=== PATIENT | female | born 2005 | race Caucasian/White ===

== ENCOUNTER 2025-01-03 12:27 | Outpatient (CLI) | payer MEDICAID, SELFPAY ==
--- OUTSIDE RECORDS SUMMARY | 2011-02-26 09:41 | XMS_ITS | Continuity of Care Document ---
Author Organization 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 Name Role Phone Gina Zavaleta Unavailable Unavaila ble Allergies, Adverse Reactions, Alerts Substance Reaction Status Criticality No Known Drug Allergies Active No I nformation Advance Directives Directive Yes / No Effective Date File Name Resuscitation Not Answered N/A N/A Life Support Not Answered N/A N/A Intubation Not Answered N/A N/A Antibiotics Not Answered N/A N/A IV Fluid Support Not Answered N/A N/A Tube Feed Not Answered N/A N/A Other Directive N/A N/A WARNING:The information contained in this section is historical and is provided for information only and does not constitute a legal document or any assurance that the information is still accurate. Please verify the information with the rosario of the legal document before using it for clinical purposes. Encounters Encounter Description Practice Location Reason(s) For Visit Diagnoses Date Provider [facility], [address] [place], [facility], tel:[phone] No Information 2010 Blanca Gina. [address] [place], [place] [id number], [place], [facility], . tel:[phone] [facility], [address], [facility], tel:[phone] 132[address] [facility] No Information 2008 Vocalvin Gina. [address] [place], [place] [id number], [facility], . tel:[phone] Family History Family Member Type Diagnosis Age At Onset Problem (finding) Family history of Diabe lavinia mellitus Payers Payer name Insurance type Covered republican ID Nasir almaraz(s) [facility] Med [facility] [id number] [facility] [id number] Social History Type Description Quantity Date Captured Comments Alcohol Use Details No Caffeine Use Details Unknown Tobacco Use Status No Information Smoking Status No Information Sex Female Chief Complaint And Reason For Visit No Information History Of Present Illness Encounter Date Complaint History Of Prese nt Illness No Information Instructions Date Instruction Additional Infor mation No Information Assessments Type Assessment Date No Information
--- OUTSIDE RECORDS SUMMARY | 2021-02-14 07:21 | XMS_ITS | Continuity of Care Document ---
Author Organization Michelle Cintron [facility] Address MATERIALS CLERK [facility] [address] [place] [address] Phone Care Team Providers Care Animation Producer Name Role Phone Uzair EXECUTIVE PILOT-PRINCIPAL PROGRAMMERDee Unavailable Unavai lable Allergies, Adverse Reactions, Alerts Substance Reaction Status Criticality No Known Allergies Active No Inform ation Medications Medication Instructions Dosage Effective Dates (start - stop) Status Comments Ventolin HFA 90 mcg/actuation aerosol inhaler inhale 2 puff by inhalation route every 4 - 6 hours as needed 180 MCG - Active 1 for home, 1 fo r school. needs folllow up before refills montelukast 10 mg tablet 1 tablet by oral route every evening - Active cetirizine 10 mg tablet 1 tablet by oral route daily - Active buspirone 5 mg tablet 1 tablet by oral route 3 times per day - Active needs follow up before refill Tessalon Perles 100 mg capsule 1 capsule by oral route 2 times per day prn cough - Active needs well check before refills Miralax 17 gram/dose oral powder take (17G) by oral route every day mixed with 8 oz. water or juice as needed for constipation - Active melatonin 5 mg capsule as needed - Active otc taking occasionally Procedures Procedure Date Interim caries arresting medicament appl ication Interim caries arresting medicament appl ication Interim caries arresting medicament appl ication Resin-Based Composite-Two Surfaces, Post erior PREV VISIT, EST, AGE 12-17 Immunization Admin 1st Vaccine 21 MENINGOCOCCAL VACCINE, IM Resin-Based Composite-Two Surfaces, Post erior Interim caries arresting medicament appl ication Periodic Oral Evaluation-Established Pat ient Caries risk assessment & documentation, high risk Sealant Measure Exempt -No Sealable 1st Molars Topical Application Of Fluoride 021 Prophylaxis-Adult PURE TONE HEARING TEST, AIR OFFICE/OUTPATIENT VISIT, EST OFFICE/OUTPATIENT VISIT, EST SBIRT Screening PREV VISIT, EST, AGE 12-17 TOBACCO NON-USER SYST BP < 130 MM HG Systolic BP < 140 mmhg DIAST BP < 80 MM HG Diastolic BP < 90 mmhg WEIGHT RECORD BODY MASS INDEX DOCD OFFICE/OUTPATIENT, EST TELEHEALTH TOBACCO NON-USER Indiv Psychotherapy 30 Min TOBACCO NON-USER Immunization Admin 1st Vaccine 20 Bexsero OFFICE/OUTPATIENT VISIT, EST TOBACCO NON-USER SYST BP < 130 MM HG Systolic BP < 140 mmhg DIAST BP < 80 MM HG Diastolic BP < 90 mmhg WEIGHT RECORD BODY MASS INDEX DOCD Indiv Psychotherapy 30 Min TOBACCO NON-USER OFFICE/OUTPATIENT VISIT, EST TOBACCO NON-USER SYST BP < 130 MM HG Systolic BP < 140 mmhg DIAST BP < 80 MM HG Diastolic BP < 90 mmhg WEIGHT RECORD BODY MASS INDEX DOCD Periodic Oral Evaluation-Established Pat ient Prophylaxis-Adult Sealant Measure Exempt -No Sealable 1st Molars Assessment Of A Patient Topical Application Of Fluoride 020 Bitewings-Two Radiographic Images Treatment Plan Completed Caries risk assessment & documentation, high risk PREV VISIT, EST, AGE 12-17 TOBACCO NON-USER SYST BP < 130 MM HG Systolic BP < 140 mmhg DIAST BP < 80 MM HG Diastolic BP < 90 mmhg WEIGHT RECORD BODY MASS INDEX DOCD Immunization Admin 1st Vaccine 19 Influenza, inj, quad PF, 36+ mos 2018 FITTING OF SPECTACLES REFRACTION EYE EXAM & TREATMENT Encounter Created In Error Sealant-Per Tooth Sealant-Per Tooth Sealant-Per Tooth Sealant-Per Tooth Sealant-Per Tooth Sealant-Per Tooth Treatment Plan Completed Resin-Based Composite-One Surface, Poste rior Bexsero OFFICE/OUTPATIENT VISIT, EST TOBACCO NON-USER SYST BP >=130-139MM HG Systolic BP < 140 mmhg DIAST BP 80-89 MM HG Diastolic BP < 90 mmhg WEIGHT RECORD BODY MASS INDEX DOCD Immunization Admin 1st Vaccine 19 Indiv Psychotherapy 30 Min TOBACCO NON-USER OFFICE/OUTPATIENT VISIT, EST TOBACCO NON-USER SYST BP < 130 MM HG Systolic BP < 140 mmhg DIAST BP < 80 MM HG Diastolic BP < 90 mmhg WEIGHT RECORD BODY MASS INDEX DOCD Comprehensive Oral Eval-New Or Establish ed Patient Assessment Of A Patient Prophylaxis-Child Topical Application Of Fluoride 019 Ext, Erupt Tth/Expsd Root-Elev &/Or Forc eps Remvl Limited Oral Evaluation-Problem Focused Panoramic Radiographic Image REFRACTION EYE EXAM, NEW PATIENT Psych Diagnostic Eval, No Medical Servic es PURE TONE HEARING TEST, AIR VISUAL ACUITY SCREEN Gardasil 9 Fluzone (quad) IM 6-35mo, IM PREV VISIT, NEW, AGE 12-17 Advance Directives Directive Yes / No Effective Date File Name No Information Encounters Encounter Description Practice Location Reason(s) For Visit Diagnoses Date Provider Providers Copied on Encounter Michelle [facility], MATERIALS CLERK [facility] [address], [place], [facility], tel:[phone] [facility] No Information 1 Uzair Price. [address], [id number] 0, [place], [place], [id number], [place]. tel:[phone] [facility], MATERIALS CLERK [facility] [address] [facility] [address] [place] [address], [place], [address], [place] tel:[phone] [facility] No Information 1 Lb Moon. [address] [place] [address], [place], [place], [id number], [place]. tel:[phone] [facility] , MATERIALS CLERK [facility] [address] [place] [address], [place], [address], [place] tel:[phone] [facility] No Information 1 Uzair Price. [address], [id number] 0, [place], [place], [id number], [place]. tel:[phone] PREV VISIT, EST, AGE 12-17 Michelle [facility], MATERIALS CLERK [facility] [address], [place], [address], [place] tel:[phone] [facility] preventive exam (chief complaint)a sthma (chief complaint) Encounter for routine child health examination without abnormal findingsBMI (body mass index), pediatric, 95-99% for ageEncounter for immunizationMild persistent allergic asthmaPrimary amenorrhea 1 Uzair Price. [address], [id number] [facility], [place], [place], [id number], [place]. tel:[phone] [facility] , MATERIALS CLERK [facility] [address], [place], [address], [place] [phone] [facility] No Information 1 Lb Moon. [address] [place] [address], [id number], [place]. tel:[phone] [facility], MATERIALS CLERK [facility] [address], [place], [address], [place] [phone] [facility] Encounter for dental exam and cleaning w/o abnormal findings 1 Lb Moon. [address] [place] [address], [place], [place], [id number], [place]. tel:[phone] OFFICE/OUTPATI ENT VISIT, EST Michelle [facility], MATERIALS CLERK [facility] [address], [place], [address], [place] tel:[phone] [facility] Failed hearing at school (chief complaint) Failed hearing screening 1 Uzair Price. [address], [id number] 0, [place], [place], [id number], [place]. tel:[phone] OFFICE/OUTPATI ENT VISIT, EST [facility] , [facility] [employer] [address] [place] [address], [facility], tel:[phone] [facility] back pain (chief complaint)k nee pain (chief complaint) Acute left-sided thoracic back painAcute pain of left kneeSeasonal allergies 1 Uzair Price. [address], [id number] [address] [place] [address], [address] [place] [address], [place]. tel:[phone] PREV VISIT, EST, AGE 12-17 [facility], [facility] [employer] [address] [place] [address], [facility], tel:[phone] [facility] well visit (chief complaint) Body mass index (BMI) 27.0-27.9, adultEncntr for routine child health exam w/o abnormal findingsAnxietyB MD (body mass index), pediatric, 85% to less than 95% for ageSeasonal allergic rhinitis due to pollenMild persistent allergic asthmaKyphosis (acquired) (postural)Hip dysplasia 0 Uzair Price. [address], [id number] [address] [place] [address], [address] [place] [address], [place]. tel:[phone] OFFICE/OUTPATI ENT, EST TELEHEALTH [facility], [facility] [employer] [address] [place] [address], [facility], tel:[phone] [facility] Virtual Visit (chief complaint)C ough (chief complaint) Seasonal allergic rhinitis due to pollenPersistent dry coughSecond hand smoke exposure 0 Petraglia Hyun. [address], [id number] [address] [place] [address], [address] [place] [address], [place]. tel:[phone] Indiv Psychotherapy 30 Min [facility], [facility] [employer] [address] [place] [address], [facility], tel:[phone] [facility] Speech sound disorderAcademic /educational problemBehavior concern 0 Irene Mendoza. 250 [facility], [id number] [address] [place] [address], [address] [place] [address], . [phone] OFFICE/OUTPATI ENT VISIT, EST Michelle [facility] MATERIALS CLERK [facility] [address], [facility], tel:[phone] [facility] anxiety (chief complaint)B HVS (chief complaint)d yspnea on exertion (chief complaint) BMI (body mass index), pediatric, 85% to less than 95% for ageAnxietyDyspne a on exertion 0 Petraglia Hyun. [address] [place] [address], [id number] [address] [place] [address], [address] [place] [address], [place]. [phone] Indiv Psychotherapy [address] [facility], MATERIALS CLERK [facility] [address] [place] [address], [facility], tel:[phone] [facility] Speech sound disorderAcademic /educational problemBehavior concern 0 Irene Mendoza. [address] [place] [address], [id number] [address] [place] [address], [address] [place] [address], . tel:[phone] OFFICE/OUTPATI ENT VISIT, EST Michelle [facility] Consortiu m, MATERIALS CLERK [facility] [address] [place] [address], [facility], [place] tel:[phone] [facility] Abdominal pain (chief complaint)B HVS (chief complaint)A nxiety (chief complaint) BMI (body mass index), pediatric, 85% to less than 95% for agePositive depression screeningAnxiety Constipation, unspecified constipation typeAbdominal pain in child 0 Petraglia Hyun. [address], [id number] [facility], [place], [address] [place] [address], [place]. tel:[phone] [facility], MATERIALS CLERK [facility] [address] [place] [address], [place], [facility], tel:[phone] [facility] Center Encounter for dental exam and cleaning w/o abnormal findings 0 Lb Moon. [address] [place] [address], [id number], [place]. tel:[phone] PREV VISIT, EST, AGE 12-17 [facility], [facility] [address] [place] [address], [place], [facility], [place] tel:[phone] [facility] well child (chief complaint) Well child check with abnormal findingsPositive depression screeningBMI (body mass index), pediatric, 85% to less than 95% for age 9 Petraglia Hyun. [address], [id number] [address] [place] [address], [address] [place] [address], [place]. tel:[phone] [facility], [facility] [address] [place] [address], [facility], tel: [phone] [facility] Myopia, bilateralAlterna ting esotropia Dec- 9 Nico Leonela. [address], [place], [facility], [place]. tel:[phone] [facility], [facility] [employer] [address] [place] [address], [place], [facility], [place] tel: [phone] [facility] blurry vision (chief complaint) Myopia, bilateralRegular astigmatism, bilateralAlterna ting esotropia Dec- 9 Morhous Kandy. [address], [id number] [facility], [place], [place], [id number], [place]. tel:[phone] [facility], [facility] [address] [place] [address], [place], [facility], [place] tel:[phone] [facility] Center No Information 9 Lb Moon. [address] [place] [address], [id number], [place]. tel:[phone] [facility], [facility] [address], [place], [address], [place] tel: [phone] [facility] No Information Jun-2 9 Lb Moon. [address] [place] [address], [id number], [place]. tel:[phone] Michelle [facility] I[facility] m, [facility] [address], [place], [address], [place] tel: [phone] [facility] No Information 9 Lb Zazuetae. [address] [place] [address], [place], [place], [id number], [place]. tel:[phone] OFFICE/OUTPATI ENT VISIT, EST Michelle [facility], [facility] [employer] [address] [place] [address], [place], [facility], [place] tel: [phone] [facility] URI (chief complaint) Viral URI with coughOther viral agents as the cause of diseases classified elsewhere Jun-0 9 Petraglia Hyun. [address] [facility], [id number] [address] [place] [address], [id number], [place]. tel:[phone] Indiv Psychotherapy [address] [facility] , [facility] [employer] [address] [place] [address], [place], [address], [place] tel: [phone] [facility] Speech sound disorderAcademic /educational problemBehavior concern Mar-0 9 Back VIGNESH Ashley. 250 [facility], [id number] [facility], [place], [address], [place]. tel:[phone] OFFICE/OUTPATI ENT VISIT, EST [facility], [facility] [address], [place], [address], [place] tel:[phone] [facility] Cough (chief complaint)B HVS (chief complaint) AnxietyBMI pediatric, 85% to less than 95th percentile for ageAcute bronchitis, unspecified organism 9 Carl Ortizca. [address] [facility] [address], [id number] [facility], [place], [place], [id number], [place]. tel:[phone] [facility] , [facility] [address], [place], [facility], [place] tel:[phone] [facility] Center Encounter for dental exam and cleaning w/o abnormal findings 9 Asher Sarai. [address] [place] [address], [id number], [place]. tel:[phone] [facility] , [facility] [address], [place], [address], [place] tel:[phone] [facility] Encounter for dental exam and cleaning w/o abnormal findings 8 Asher Sarai. [address] [place] [address], [id number], [place]. tel:[phone] [facility] , [facility] [address] [place] [address], [place], [facility], [place] tel:[phone] [facility] blurry vision (chief complaint) Myopia, bilateralPresenc e of glasses 8 McManis Sudhakar. [address] [facility] [address], [id number] [facility], [place], [place], [id number], [place]. tel:[phone] Psych Diagnostic Eval, No Medical Services [facility] , [facility] [address], [place], 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 [address] [facility] [id number] 0, [place], [address], [place]. [phone] PREV VISIT, NEW, AGE 12-17 Michelle [facility] Care FESTUS Hansen Primary [facility] [address], [place], [address], [place] tel:[phone] [facility] Well child check (chief complaint) BMI pediatric, 85% to less than 95th percentile for ageWell child check with abnormal findingsEncounte r to establish careKyphosis (acquired) (postural) 8-201 8 Petraglia Hyun. [address], [id number] [facility], [place], [place], [id number], [place]. tel:[phone] Family History Family Member Type Diagnosis Age At Onset Problem (finding) Family history of anemi a Problem (finding) Family history of asthm a Problem (finding) Family history of Menta l illness Problem (finding) Family history of hyper tension Problem (finding) Family history of attention deficit hyperactivity disorder Problem (finding) Family history of learn ing disability Problem (finding) Family history of suici de Immunizations Vaccine Date Status Comments MCV4 administered Source: New Imm unization Record Bexsero administered Source: New Imm unization Record Fluzone Quad PF administered Source: New Immunization Record Bexsero administered Source: New Imm unization Record FLUZONE administered Source: New Imm unization Record HPV (9-valent) administered Source: New I mmunization Record Tdap administered Source: Other R egistry fluvirin administered Source: Other R egistry MCV4 administered Source: Other R egistry HPV (9-valent) administered Source: Other Registry Flu administered Source: Other R egistry Tdap administered Source: Other R egistry Influenza administered Source: Other R egistry Varicella administered Source: Other R egistry POLIO administered Source: Other R egistry MMR II administered Source: Other R egistry INFANRIX administered Source: Other R egistry POLIO administered Source: Other R egistry Prevnar 13 administered Source: Other R egistry Hepatitis A administered Source: Other R egistry INFANRIX administered Source: Other R egistry Prevnar 13 administered Source: Other R egistry Haemophilus influenzae type b vaccine, conjugate unspecified formulation administered Source: Other Regist ry Hep A (ped/adol, 2 dose) administered Janis rce: Other Registry Varicella administered Source: Other R egistry POLIO administered Source: Other R egistry Prevnar 13 administered Source: Other R egistry MMR administered Source: Other R egistry Haemophilus influenzae type b vaccine, conjugate unspecified formulation administered Source: Other Regist ry ENGERIX administered Source: Other R egistry INFANRIX administered Source: Other R egistry Polio, Inactive administered Source: Othe r Registry Pneumococcal, PCV-13 administered Source: Other Registry Haemophilus influenzae type b vaccine, conjugate unspecified formulation administered Source: Other Regist ry ENGERIX administered Source: Other R egistry DTaP (younger than 7 yrs) administered So urce: Other Registry Hep B (ped/adol, 3 dose) administered Janis rce: Other Registry Payers Payer name Insurance type Covered alliance party ID Authorrose marie almaraz(s) D [employer] [facility] CI [id number] D [facility] [id number] [employer] CFC CI [id number] [facility] [id number] [employer] CFC CI [id number] [facility] Medical [id number] [employer] CFC CI [id number] [facility] [id number] [employer] CFC CI [id number] [facility] [id number] Social History Type Description Quantity Date Captured Comments Alcohol Use Details Unknown Caffeine Use Details Unknown Tobacco Use Status No Information Smoking Status Never smoker Sex Female Sexual Orientation Don't Know Gender Identity Female Chief Complaint And Reason For Visit No Information Reason For Referral Reason For Referral No Information Plan Of Treatment Date Type Action Status Goal Hematocrit. Due on due Goal Vision screen (15-17 yr). Du e on due Goal Hearing screen (10-21 yr). D ue on due Goal Well visit (16 years) due Goal Vision screen (15-17 yr). Du e on due Goal Well visit (16 years) due Goal Hearing screen (10-21 yr). D ue on due Goal Hematocrit. Due on due Goal Vision screen (15-17 yr). Du e on due Goal Well visit (16 years) due Goal Hearing screen (10-21 yr). D ue on due Goal Hematocrit. Due on due Goal Hematocrit. Due on due Goal Well visit (15 years). Due o n due Goal Vision screen (15-17 yr). Du e on due Goal Hearing screen (10-21 yr). D ue on due Goal Hematocrit. Due on due Goal Vision screen (15-17 yr). Du e on due Goal Well visit (15 years). Due o n due Goal Hearing screen (10-21 yr). D ue on due Goal Lifestyle education regardin g diet completed Goal Low carbohydrate diet educat ion completed Goal Diet education completed Referral Ordered: Referrals: *[facility] - Women's Health. Evaluate and treat ordered Referral Ordered: pt has been having increased back pain ordered Referral Ordered: Orthopedics ordered Referral Ordered: Referrals: *[facility] - Insurance Consultant. Evaluate and treat ordered Referral Ordered: Referrals: *[facility] - Dentistry. Evaluate and treat ordered Referral Ordered: Referrals: [facility] - Insurance Consultant. Evaluate and treat ordered Referral Referred To: [facility] Ordered: Referrals: Behavioral Health. [facility]. Consult. Diagnostic testing ordered Patient Education Well Care - Tips for Te ens: Care Instructions completed Patient Education buspirone 5 mg tablet c ompleted Patient Education Well Care - Tips for Te ens: Care Inst~ completed Patient Education Child's Well Visit, 9 t o 11 Years: Car completed Patient Education A Healthy Lifestyle for Your Child: Ca completed Patient Education Child's Well Visit, You ng Teen: Care I completed History Of Present Illness Encounter Date Complaint History Of Prese nt Illness preventive exam asthma Onset: 2 months ago. The frequency of symptoms is occasional. Pertinent negatives include abdominal pain, cough, diarrhea, eye discharge, fatigue, fever, nausea, otalgia, vomiting or wheezing. Additional information: c/o trouble breathing on/off and worse with exercises. she has been off of her medication for a while. Failed hearing at school Request ing referral to Audiology, Per nurse at school failed hearing in 2017 and 2020. back pain Onset: on 2020. Severity level is 4. Location of pain is middle back.There is no radiation of pain. The patient's school transport describes the pain as an ache and dull. Context: worked out last night.The patient's school transport denies aggravating factors. The patient's school transport denies relieving factors. Additional information: states comes and goes and may have pulled a muscle. She woke up with the back pain and pain in her knee this morning. knee pain Onset: on 2020. Severity level is 4. It occurs intermittently. Location: left knee. The pain is sharp. Context: there is no injury. There are no aggravating factors. There are no associated symptoms. Hand Dominance: right. well visit pt comes in for well visit and sports physical for bowling.Has previously seen [facility] for back pain and hip dysplasia but stopped going d/t transportation issues. Would like to be re-referred.Has an IEP with the school for speech and emotional issues r/t developmental delay.Would like to restart anxiety meds and has been having trouble breathing especially at night Virtual Visit Today's Visit wa s conducted via virtual visit protocol.Connection was established and patient's full name and date of confirmed.I provided guidance regarding the virtual visit process.I monitored and assured connectivity throughout the visit. Cough Onset: 3 weeks a go. Severity: 4. The patient describes the cough as dry. It occurs persistently. Context: allergies and smoke exposure. Symptoms are aggravated by lying down. Relieving factors include antihistamines. Associated symptoms include cough. Pertinent negatives include chills, dyspnea, fatigue, fever, nasal congestion, rhinorrhea, sinus pressure, sore throat and wheezing. The patient has a history of allergies. The patient does not have a history of asthma. Additional information: ran out of antihistamine from ER. [facility] PHQ 2: negGAD2: negCRAFFT: neg anxiety This is a follow up visit. There is continuation of initial symptoms. The patient reports functioning as very difficult. The patient's risk factors include relationship problems, family stress and brother removed from home. The anxiety is associated with agitation. 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 Argues/yells frequently with younger sister. dyspnea on exertion The symptoms are reported as being moderate. She states the symptoms are acute. Reports she received an inhaler from the ER for bronchitis due to wheezing 3 months ago. Requesting refill of inhaler for exertion reporting shortness of breath; no prior asthma or current wheezing. Denies difficulty breathing or illness. [facility] PHQ A score 7GAD 7 score 14, referral. Craft score 0 Abdominal pain Onset: 1 Day. As sociated symptoms include constipation. Pertinent negatives include diarrhea, fever, nausea, rash, vaginal bleeding and vomiting. Anxiety This is an initi al visit. There is continuation of initial symptoms. The patient reports functioning as somewhat difficult. The patient presents with difficulty falling asleep and diminished interest or pleasure but denies depressed mood, difficulty concentrating, feelings of guilt, loss of appetite or thoughts of or suicide. The patient denies any nausea and vomiting. Additional information: seeing Irlanda, school counselor. No history of med management, but mother plans to take her. Left school yesterday due to leg shaking, knee pains, upset stomach, feeling nervous. well child HERE FOR [facility]. NO CONCERNS. blurry vision The 13 year 4 mo nth old female presents for evaluation of blurry vision in the right eye and left eye. It started about 1 year(s) ago. It occurs all the time. The onset was progressive. It affects both near and far vision. The symptom is constant. The condition is mild. The condition is described as blurring. The history and pretests were reviewed and the HPI was obtained by Dr. Kandy Sol. Pt appears normal URI Onset: 1 week ag o. The patient describes the cough as non-productive. The problem has improved. Associated symptoms include cough and nasal congestion. Pertinent negatives include dyspnea, fatigue, fever, sore throat and wheezing. URI (comments) mother consentin g to Meningococcal B vaccine. BHVS PHQ 2 score 1GAD 7 score 13, referral. Cough Onset: 2 weeks a go. The problem has become gradually worse. Relieving factors include tea with honey. Associated symptoms include cough. Pertinent negatives include dyspnea, fatigue, fever, post-nasal drainage, sinus pressure, sore throat and wheezing. The patient does not have a history of asthma. blurry vision The 11 year 10 m onth old female presents for evaluation of blurry vision in the right eye and left eye. It started about 5 year(s) ago. It affects distance vision. Wore glasses age 1-6 then doc D/C'd The history and pretests were reviewed and the HPI was obtained by Dr. Sudhakar Jaimes O.D. Behavior and learning problem Pt has speech disorder and on IEP. Also has issues with reading and other areas of learning. Mom describes pt as emotional and acts younger than age. Mom worried there is an intellectual disability or mental health issue that is impacting learning and behavior. Well child check NEW TO [facility]. Pt here for well child check having some back pain intermittently present for months and not feeling well today. + rhinorrhea- no treatment taken. No known exposures. Functional Status Date Functional Assessmen t No Information Instructions Date Instruction Additional Infor mation [facility] consented emir christiansonThank you for having me see Tiara today! Related to Encounter for routine child health examination without abnormal findings Restart montelukast, cetirizine, and albuterol inhaler. 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 Related to Failed hearing screening [facility] consented emir howard.Thank you for having me see Tiara today! Related to Acute left-sided thoracic back pain Giving encouragement to exercise Related to Body mass index (BMI) 27.0-27.9, adult Lifestyle education regarding di et Related to Body mass index (BMI) 27.0-27.9, adult Encouraged parents t o smoke outside and quit smoking assistance is available.Schedule 14 yr well check before out of meds in 1 month.Thank you for allowing me to participate in your care! Related to Second hand smoke exposure Secondary to allergi es, better w/antihistamine. Med refill provided w/edu. Related to Persistent dry cough TELEPHONE APPT DUE T O COVID19 STAY IN PLACEDiscussed condition, medications, and plan of care.Expect improvement over the next 1-2 weeks.Schedule follow up for new/worsening/persistent symptoms. Related to Seasonal allergic rhinitis due to pollen Evaluated in ER for bronchitis 2 months ago and was given an inhaler for wheezing. No history of asthma.Requesting inhaler refill for shortness of breath on exertion.Provided; encouraged healthy diet and activity as tolerated. If symptoms persist, return to clinic for Pulmonology referral to further evaluate.Complete Med Dispense Form and provide inhaler to school nurse.Thank you for allowing me to take care of Tiara! Related to Dyspnea on exertion START RX SENT TO [facility] 2 WEEKS AGO.Continue school counseling w/Irlanda.Met with pharmaceutical specialty representative, Ev, during today's appt.You may start rx: buspirone 1 tablet preschool associate teacher, after school, and at bedtime to treat your anxiety. Rx sent to pharmacy.See educational handout.FOLLOW UP APPT IN 1 MONTH WITH SCHOOL TRANSPORTATION.Updated 2nd Meningitis B vaccine today. Related to Anxiety Encouraged healthy d ietary intake w/baked chicken/fish, daily vegetables and fruit intake, low fat milk, etc. Limit candy and fried/processed foods. Limit electronics to no more than 2 hours per day. Encourage at least 1 hour physical activity daily.GOALS FOR HEALTHY LIFESTYLE: 5 or more servings of fruits or vegetables every day; limit electronics to less than 2 hours per day (tv, video games, phones, etc); at least 1 hour physical activity/exercise every day (walk, play outside, dance, kick a ball); get 0 calories from drinks, except for skim or 1% milk. Related to BMI (body mass index), pediatric, 85% to less than 95% for age Giving encouragement to exercise Related to Body mass index (BMI) pediatric, greater than or equal to 95th percentile for age Encouraged healthy d ietary intake w/baked chicken/fish, daily vegetables and fruit intake, low fat milk, etc. Limit candy and fried/processed foods. Limit electronics to no more than 2 hours per day. Encourage at least 1 hour physical activity daily.GOALS FOR HEALTHY LIFESTYLE: 5 or more servings of fruits or vegetables every day; limit electronics to less than 2 hours per day (tv, video games, phones, etc); at least 1 hour physical activity/exercise every day (walk, play outside, dance, kick a ball); get 0 calories from drinks, except for skim or 1% milk. Related to BMI (body mass index), pediatric, 85% to less than 95% for age You may call to shae navarro an appointment with one of our behaviorists for further evaluation and management at . If you are having thoughts of harming yourself or others, call or go to the ER immediately. You can call CRISIS at [facility] at [place] you can text home to [phone]. You can call [facility] at [phone] at anytime; 24 hour availability. Related to Positive depression screening Continue school coun edgaring w/Irlanda.Met with pharmaceutical specialty representative, Ev, during today's appt.You may start rx: buspirone 1 tablet preschool associate teacher, after school, and at bedtime to treat your anxiety. Rx sent to pharmacy.See educational handout.FOLLOW UP APPT IN 2 WEEKS WITH SCHOOL TRANSPORTATION. Related to Anxiety rx; miralax SENT TO PHARMACY ([facility]) Educated on constipation, dietary recommendations, medications, and plan of care. Encouraged adequate water and fiber intake (recommended vegetables, fruits, oatmeal, etc.); limit cheese and dairy intake. Increase activity level. Return to clinic if symptoms are not improving. Go to E.R. for severe pain and/or if fevers develop. Educational hand-outs provided.Recommend flu vaccine every january.Next well check due age 14. Related to Constipation, unspecified constipation type Encouraged healthy d ietary intake w/baked chicken/fish, daily vegetables and fruit intake, low fat milk, etc. Limit candy and fried/processed foods. Limit electronics to no more than 2 hours per day. Encourage at least 1 hour physical activity daily.GOALS FOR HEALTHY LIFESTYLE: 5 or more servings of fruits or vegetables every day; limit electronics to less than 2 hours per day (tv, video games, phones, etc); at least 1 hour physical activity/exercise every day (walk, play outside, dance, kick a ball); get 0 calories from drinks, except for skim or 1% milk. Related to BMI (body mass index), pediatric, 85% to less than 95% for age Your questionnaire i ndicated that you are having feelings of anxiety and/or depression. You may call to schedule an appointment with one of our behaviorists for further evaluation and management at . If you are having thoughts of harming yourself or others, call 12-19- or go to the ER immediately. You can call CRISIS at [facility] at [place] you can text home to [phone].Continue school based counseling. Related to Positive depression screening Education provided o n safety, development, nutrition/sleep/exercise recommendations, and vaccines (updated flu vaccine today). Provided discharge instructions on age-appropriate anticipatory guidance education. Recommended annual flu vaccine each January.Return to clinic as needed for illnesses, injuries, or concerns.Routine dental exams are encouraged every 6 months and eye exams every year. These are available to schedule with us at [facility]. You may call to schedule an appointment and request school transportation, if desired.Provided orders for age-recommended lab testing to screen for cholesterol, blood sugar control, thyroid function, and anemia; may be completed at [facility] lab location (see envelope for home w/addresses). We will call upon receiving your lab results.Thank you for allowing me to take care of Tiara! 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 No change in treatment plan.Continue decongestants as needed, humidifier, and ibuprofen otc as needed. Recommended steam from shower inhalation to decongest nasal passages, alternating ibuprofen and acetaminophen otc prn as directed, etc. Expect viral URI symptoms to last 1-2 weeks; return to clinic for new/worsening symptoms or if not improving over the next 3-5 days. Updated Meningococcal B vaccine today.Next well check due at age 13.Thank you for allowing me to take care of Tiara! Related to Viral URI with cough Met with steph Multaniaviorislee, during today's encounter for positive anxiety screen. Related to Anxiety ANTIBIOTIC SENT TO [facility]. Symptoms mild but persistentSee bronchitis handout.Schedule 12 year well child check. Please call [phone], Extension [phone] if consenting to recommended Meningococcal B vaccine (will give at well check if parental consent is received).See appointment reminder. Related to Acute bronchitis, unspecified organism Giving encouragement to exercise Related to Body mass index (BMI) pediatric, 85th percentile to less than 95th percentile for age Low carbohydrate diet education Related to Body mass index (BMI) pediatric, 85th percentile to less than 95th percentile for age - Return in 1 year Related to My opia, bilateral - Return in as needed Related to Presence of glasses - Myopia, or nearsig htedness - is when it is difficult to see details to objects far away. A prescription for glasses has been provided. Unless otherwise noted, children should wear glasses radio time sales supervisor,except gym, recess, and outdoor play to prevent breakage. Adults should wear radio time sales supervisor unless otherwise noted. Because people change, the patient should be rechecked in 1 year (unless insurance limits them to 2 years - usually over 19 years). Ocular health was normal. IF GLASSES ARE NEEDED, TAKE CARE OF THEM. INSURANCE WILL ONLY PROVIDE 1 PAIR PER YEAR FOR CHILDREN 18 AND UNDER. ONCE EVERY 2 YEARS FOR THOSE 19 YRS AND OVER. YOU MIGHT HAVE TO PAY FOR REPLACEMENT PARTS IF THE INSURANCE DECIDES THE BROKEN GLASSES ARE NOT COVERED UNDER THEIR REPLACEMENT POLICIES. Related to Myopia, bilateral - Glasses were order ed for the patient. The insurance company/ state dictates the lab used to manufacture the glasses, we have no control as to the time it takes to get the glasses back. Most times are 2-4 weeks, but on occasion circumstances beyond anyone's control cause delays. Once the order is placed, it can NOT be changed or altered. The only option once the order has been placed is to purchase glasses at your own expense (insurance will NOT reimburse you). Due to the nature of the insurances we take, we are unable to offer refunds or exchanges in styles. If the glasses become broken or damaged, do NOT throw away the parts OR GLUE THEM TOGETHER. Bring them to our office to see what options we have. If they are lost or broken, just not wearing them is NOT an option. They would not have been prescribed if they were not important and needed. If they have a current pair of glasses, even in poor condition, keep those as a backup pair. Related to Presence of glasses Educated on importan ce of good posture. Encouraged stretching and strengthening back/abdomen twice daily to support spine. Referred to [facility] for further eval and management. 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 services availab le. Related to Encounter to establish care Educated mother on s afety, development, nutrition/sleep/exercise recommendations, and vaccines. Provided discharge instructions on age-appropriate anticipatory guidance education. Patient is on IEP- referred to VIGNESH Multani, in clinic for further eval and management. Mother voiced understanding, denied further needs at this time. Related to Well child check with abnormal findings Giving encouragement to exercise Related to Body mass index (BMI) pediatric, 85th percentile to less than 95th percentile for age Diet education Related to Body mass index (BMI) pediatric, 85th percentile to less than 95th percentile for age Assessments Type Assessment Date No Information Patient Care Teams Name Effective Dates (start - stop) Status Members No Information
--- OUTSIDE RECORDS SUMMARY | 2025-01-03 12:31 | XMS_ITS | Clinical Summary ---
Author Organization [facility] Address [address] [place] [address] Care Team Providers Care Furnace Cooler Name Role Phone Anamaria Ham Merced FAYE Primary Care Provider [phone] Allergies No known active allergies Medications busPIRone (BUSPAR) 10 MG tablet 05/10/2024 Active cetirizine (zyrTEC) 5 MG tablet Take 1 tablet by mouth Daily. Active doxepin (SINEquan) 10 MG capsule 03/05/2024 Active melatonin 3 MG tablet Take 2 tablets by mouth Daily. Active traZODone (DESYREL) 50 MG tablet 02/15/2024 Active medroxyPROGESTE Marcin (Provera) 10 MG tablet Take 1 tablet by mouth Daily. 10 tablet 07/18/2024 Active Active Problems Problem Noted Date Diagnosed Date Well woman exam with routine gynecological exam 05/31/2024 Primary amenorrhea 05/31/2024 Immunizations Immunization Administration Dates Next Due DTaP 12/12/2009, 8,10/28/2006,2005,2004 Hep A, 2 Dose 10/28/2006,02/03/2006 Hep B, Adolescent or Pediatric 09/16/2005,2004,2004 HiB 02/03/2006,09/16/2005,2004 IPV 12/12/2009, 7,09/16/2005,2004 MMR 12/12/2009,09/16/2005 Pneumococcal Conjugate 13-Va lent (PCV13) 10/28/2006,02/03/2006,09/16/2005,2004 Varicella 12/12/2009,09/16/2005 Family History Medical History Relation Name Comments Breast cancer Neg Hx Colon cancer Neg Hx Ovarian cancer Neg Hx Uterine cancer Neg Hx Social History Tobacco Use Types Packs/Day Years Used Date Smoking Tobacco: Never Smokeless Tobacco: Never Tobacco Cessation:Counseling Given: Not Answered Alcohol Use Standard Drinks/Week Comments Never 0 (1 standard drink = 0.6 oz pur e alcohol) Comments No Sex and Gender Information Value Date Recorded Sex Assigned at Not on file Legal Sex Female 12:46 PM EDT Gender Identity Not on file Sexual Orientation Not on file Last Filed Vital Signs Vital Sign Reading Time Taken Comments Blood Pressure 130/82 07/12/2024 11:32 AM EDT Pulse - - Temperature - - Respiratory Rate - - Oxygen Saturation - - Inhaled Oxygen Concentration - - Weight 132 kg (291 lb) 07/12/2024 11:32 AM EDT Height 188 cm (6' 2 ) 07/12/2024 11:32 AM EDT Body Mass Index 37.36 07/12/2024 11:32 AM EDT Plan of Treatment Health Maintenance Due Date Last Done Comments HPV VACCINES (1 - 3-dose series) 08/14/2019 MENINGOCOCCAL B VACCINE (1 of 2 - Standard) 2020 TDAP/TD VACCINES (1 - Tdap) 08/14/2023 ANNUAL PHYSICAL 05/27/2024 HEPATITIS C SCREENING 05/27/2024 COVID-19 Vaccine (1 - season) 2024 INFLUENZA VACCINE 01/18/2025 Pneumococcal Vaccine 0-49 Completed 2006, 02/03/2006, 09/16/2005, Additional history exists MENINGOCOCCAL VACCINE Aged Out No pedro mikala eligible based on patient's age to complete this topic Insurance [employer] Care Teams Furnace Cooler Relationship Specialty Start Date End Date Anamaria Ham APRN [address] [place] [address] PCP - General Family Medicine 05/27/24
--- OUTSIDE RECORDS SUMMARY | 2025-01-03 12:31 | XMS_ITS | Encounter Summary ---
Author Organization [facility] Address [address] [place] [address] Care Team Providers Care Information Systems Audit Manager Name Role Phone Anamaria Ham FAREBOX REPAIRER Primary Care Provider [phone] Encounter Details Date Type Department Care Team (Late st Contact Info) Description 06/28/2024 Results Follow-Up [facility] [address] [place] [address] Alcira Mcneill, FAREBOX REPAIRER [address] [place], [place] [id number] Social History Tobacco Use Types Packs/Day Years Used Date Smoking Tobacco: Never Smokeless Tobacco: Never Alcohol Use Standard Drinks/Week Comments Never 0 (1 standard drink = 0.6 oz pur e alcohol) Comments No Sex and Gender Information Value Date Recorded Sex Assigned at Not on file Legal Sex Female 12:46 PM EDT Gender Identity Not on file Sexual Orientation Not on file documented as of this encounter Plan of Treatment Not on file documented as of this encounter Visit Diagnoses Not on filedocumented in this encounter Care Teams Information Systems Audit Manager Relationship Specialty Start Date End Date Anamaria Ham, FAREBOX REPAIRER [address] [place] [address] PCP - General Family Medicine 05/27/24 documented as of this encounter
--- NOTE | 2025-01-03 12:32 | XR_ITS ---
FINAL REPORT CLINICAL HISTORY: MID AND LOWER BACK PAIN COMPARISON: None FINDINGS: 2 views of the thoracic spine were obtained. No fracture is seen. Alignment is normal. No significant degenerative changes are seen. IMPRESSION: Unremarkable thoracic spine series. 2 views of the lumbosacral spine were obtained. No fracture is seen. Alignment is normal. No significant degenerative changes are seen. IMPRESSION: Unremarkable lumbosacral spine series. Reviewed, Interpreted and Dictated by Livia Chung MD Transcribed by Lynda Sellers Authenticated and [facility]
--- NOTE | 2025-01-03 12:32 | XR_ITS ---
FINAL REPORT CLINICAL HISTORY: LBP HYPERMOBILITY SYNDROME COMPARISON: None FINDINGS: LEFT HIP: Two views of the left hip with an AP view of the pelvis demonstrate no acute fracture or dislocation. The joint spaces appear normal. The visualized bony structures are well aligned. No soft tissue abnormality is seen. IMPRESSION: No acute bony abnormality. Reviewed, Interpreted and Dictated by Livia Chung MD Transcribed by Lynda Sellers Authenticated and [facility]
--- NOTE | 2025-01-03 12:32 | XR_ITS ---
FINAL REPORT CLINICAL HISTORY: PAIN COMPARISON: None FINDINGS: RIGHT HIP Two views of the right hip with an AP view of the pelvis demonstrate no acute fracture or dislocation. The joint spaces appear normal. The visualized bony structures are well aligned. No soft tissue abnormality is seen. IMPRESSION: No acute bony abnormality. Reviewed, Interpreted and Dictated by Livia Chung MD Transcribed by Lynda Sellers Authenticated and [facility]
== END 2025-01-03 23:59 | disposition home or self-care (01) ==
LOC: RAD 12:29
PROVIDERS: PCP Nurse Practitioner Family; Visit Provider Nurse Practitioner Family
DX: M54.50 Low back pain, unspecified (principal); G89.29 Other chronic pain; M35.7 Hypermobility syndrome
CPT/HCPCS: 72084; 73502

== ENCOUNTER 2025-02-16 13:40 | Outpatient (RCR) | payer MEDICAID, SELFPAY ==
--- NOTE | 2025-02-16 14:59 | HMH.PTOPEV ---
PT Evaluation Rehab PT Outpatient Evaluation Start: 02/16/25 13:58 Freq: Status: Active Protocol: Document 02/16/25 13:58 KALA (Rec: 02/16/25 14:58 KALA [id number]) E-signed By Ryan Sen, PT Outpatient Therapy Subjective History Subjective History Pt is a 19 yof who is referred to [facility] outpatient PT with complaints of bilateral hip and lower back pain. Pt and pt's mother provide pt's subjective history. Pt reports that her pain has been going on for several years. Reports that it has worsened over time. Pt reports that it can sometimes be a sharp pain and sometimes a dull pain. Pt reports that she has difficulty with standing for longer periods, walking, stairs and lifting. PMH: Autism Spectrum Disorder New diagnosis of No cancer in past 12 months? Chief Complaint Pain,Weakness Symptom Type Ache,Sharp Symptoms Relieved By Nothing Symptoms Aggravated Supine,Standing,Walking,Lifting By Prior Functional None Limitations Current Functional Lifting,Standing,Squatting,Walking,Stairs Limitations Symptom Description Constant but Variable,Activity Dependent Level of pain today 7 (0-10) Pain scale - at its 5 best (0-10) Pain scale - at its 10 worst (0-10) Hip/Knee Eval Palpation Tenderness bilateral Knee Palpation None/Normal Finding Hip Palpation None/Normal Findings MMT Hip Flexion Strength 3 Fair Grade Hip Abduction 2 Poor Strength Grade Hip Extension 2 Poor Strength Grade Knee Extension 4 Good Strength Grade Knee Flexion 4 Good Strength Grade Special Tests Hip Bowstring (Cram) Negative Left,Negative Right Test Hip Sudhakar's Test Negative Left,Negative Right Hip Padmini's Test Negative Left,Negative Right Hip Jessa Test Negative Left,Negative Right Hip Piriformis Test Negative Left,Negative Right Hip 90-90 Straight Negative Left,Negative Right Leg Raise Test Lower Extremity Functional Index Activities Today, do you or would you have any difficulty at all with: a.Any of your usual Quite a bit of difficulty work, housework or school activities b. Your usual Extreme difficulty or unable to perform activity hobbies, recreational or sporting activities c. Getting into or Moderate difficulty out of the bath d. Walking between Extreme difficulty or unable to perform activity rooms e. Putting on your Quite a bit of difficulty shoes or socks f. Squatting A little bit of difficulty g. Lifting an object A little bit of difficulty , like a bag of groceries from the floor h. Performing light Quite a bit of difficulty activities around your home i. Performing heavy Moderate difficulty activities around your home j. Getting into or Extreme difficulty or unable to perform activity out of a car k. Walking 2 blocks Extreme difficulty or unable to perform activity l. Walking a mile Moderate difficulty m. Going up or down Quite a bit of difficulty 10 stairs (about 1 flight of stairs) n. Standing for 1 Extreme difficulty or unable to perform activity hour o. Sitting for 1 Extreme difficulty or unable to perform activity hour p. Running on even A little bit of difficulty ground q. Running on uneven Moderate difficulty ground r. Making sharp Quite a bit of difficulty turns while running fast s. Hopping Quite a bit of difficulty t. Rolling over in Moderate difficulty bed LEFI Score Lower Extremity 25 Functional Index Score Miscellaneous Dx PT Eval Objective Objective Abdominal MMT: 2 Outpatient Therapy Assessment Impairments Problems/ Palpation Tenderness,Impaired Strength,Impaired Impairmments Standing,Impaired Lifting,Impaired Household Care, Impaired Squatting,Subjective C/O Pain,Impaired Self Care/Self Management Prognosis Rehab Potential Fair Comment w HEP compliance Clinical Impression Consistent with Yes Diagnosis Consistent with LBP w mvmt. coordination impairment Additional details: Pt presents with low back and hip pain secondary to autism related weakness and developmental delays. PT Patient Goals PT Patient Goals PT Short Term 3 weeks: Patient Goals 1. Patient will report a 48 hour average pain of 5/10 on the numeric pain rating scale to demonstrate improvement in quality of life and increased functional capacity. 2. Patient will improve b/l hip and abdominal strength upon manual muscle testing to 3+/5 facilitate increased spinal stabilization and improved functional capabilities. 3. Patient will be able to stand for 15 minutes at one time to demonstrate independence with mold setter, such as washing her dishes. 4. Pt will demonstrate HEP compliance by completing prescribed HEP 4-5x/week. 5.. Pt will improve LEFS score to 34 to demonstrated improved functional mobility, overall improvement and improved quality of life. 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 Patient will report a 48 hour average pain of 2-3/10 on the numeric pain rating scale to demonstrate improvement in quality of life and increased functional capacity. 2. Patient will improve b/l hip and abdominal strength upon manual muscle testing to 4/5 facilitate increased spinal stabilization and improved functional capabilities. 3. Patient will be able to stand/walk for 1 hour at one time to demonstrate improved community ambulation for activities, such as grocery shopping and other activities. 4. Pt will be able to lift a 10# weight from floor with proper lifting mechanics and less than 2/10 pain to demonstrate the ability to lift items, such as grocery bags, milk jugs, laundry basket, etc. 5. Pt will improve LEFS 43 score to demonstrate improved functional mobility, overall improvement and improved quality of life. Outpatient Therapy Plan of Care Treatment Plan May Include Therapeutic Exercise Yes Including Home Exercise Program Manual Therapy Yes Techniques Neuromuscular Re- Yes education Therapeutic Yes Activities to Return to Previous Functional/Work Level Gait Training Yes ADL/Self Care Yes Education Thermal Modalities Yes Electrical Yes Stimulation Massage Yes Manual Lymphatic Yes Drainage Eval/Re-Eval Yes Frequency Times per week 2 Duration Number of Weeks 6 Addendums This patient is a No candidate for social or vocational rehab ? Patient/Guardian Yes verbally acknowledges understanding of treatment program and consents to further treatment? Patient/Guardian Yes verbally acknowledges understanding of diagnosis, prognosis and goals for treatment? Eval Complexity PT Charges 54749 - High Complexity Shoulder/Elbow Eval Shoulder Objective Measurements Elbow Objective Measurements PHYSICIAN CERTIFICATION: I certify the specified therapy services for Tiara Lucas are required, authorized, and reviewed every 30 days.
== END 2025-02-16 23:59 | disposition home or self-care (01) ==
LOC: PT 13:40
PROVIDERS: PCP Nurse Practitioner Family; Visit Provider Nurse Practitioner Family
DX: M25.551 Pain in right hip (principal)
CPT/HCPCS: 97163